=== PATIENT | male | born 1965 | race Caucasian/White ===

== ENCOUNTER 2023-12-05 12:12 | Emergency (ER) | payer MEDICAID, SELFPAY ==
--- NOTE | ~2023-12-05 | CT_ITS ---
EXAMINATION: CT HEAD WITHOUT CONTRAST CLINICAL INFORMATION: Double vision, evaluate for nerve palsy COMPARISON: None available. TECHNIQUE: Contiguous axial imaging was performed from the skull base to vertex without intravenous administration of contrast. This CT examination was performed using dose optimization techniques as appropriate, variously including the following: *Automated exposure control *Adjustment of mA and/or kV according to patient size (this includes techniques or standardized protocols for targeted exams where dose is matched to indication/reason for exam; i.e. extremities or head) *Use of iterative reconstruction technique DLP: 766 mGy-cm FINDINGS: RESULTS: There is no evidence of acute intracranial hemorrhage, acute large vessel infarct, midline shift or mass effect. The ambriz-white differentiation is preserved. The ventricles and sulci are within normal limits in size and configuration. There is no evidence of hydrocephalus. There are no extraaxial collections. Osseous structures are intact. Paranasal sinuses and mastoid air cells are well aerated. CT/CT head/brain wo IV con IMPRESSION: Unremarkable non-contrast CT of the brain. Electronically signed by: Luli Grant MD 12/05/2023 02:19 PM EDT
--- NOTE | ~2023-12-05 | CT_ITS ---
EXAMINATION: CT ANGIOGRAPHY CERVICAL AND CEREBRAL CLINICAL INFORMATION: Left 6th nerve palsy, questionable stroke COMPARISON: CT head December 05, 2023 TECHNIQUE: Serial contiguous axial images of the upper thoracic, cervical and intracranial arterial anatomy were obtained 10 seconds following bolus infusion of 70 mL of Omnipaque. Prior to this, noncontrast imaging of the head was performed. This CT examination was performed using dose optimization techniques as appropriate, variously including the following: *Automated exposure control *Adjustment of mA and/or kV according to patient size (this includes techniques or standardized protocols for targeted exams where dose is matched to indication/reason for exam; i.e. extremities or head) *Use of iterative reconstruction technique DLP: 2425 mGy-cm FINDINGS: The aortic arch and the origins of the right brachiocephalic, left common carotid, and left subclavian arteries are normal in size and appearance. Cervical CTA: The common, external and internal carotid arteries are normal in course and caliber. There is no significant stenosis at the origin of the internal carotid arteries. The vertebral arteries are codominant. The extracranial vertebral arteries are normal in a course and caliber. There is no evidence of aneurysm, dissection, or significant stenosis. There is no extravasation of contrast to suggest vascular injury. Cerebral CTA: The intracranial segments of the internal carotid arteries are normal bilaterally. The anterior and middle cerebral vasculature is normal. The anterior communicating and both posterior communicating arteries are seen and are unremarkable in appearance. The vertebrobasilar junction is normal. The basilar artery and its branches are normal. The major venous sinuses are unremarkable. There is no evidence of aneurysm, dissection, arteriovenous malformation, or significant stenosis. There is no extravasation of contrast to suggest vascular injury. CT/CT angio head neck IMPRESSION: No occlusion or stenosis of the head and neck vasculature. Electronically signed by: Sea Lauren DO 12/05/2023 08:47 PM EDT
[2023-12-05 12:27] VITALS: BP 155/95; PULSE 96; RESP 16; TEMP 36.4; O2SAT 97; BMI 31.0
--- NOTE | 2023-12-05 12:27 | ED.GENADULT ---
HPI - General Adult General Chief complaint: Eye Problems Stated complaint: double vision Time Seen by Provider: 12/05/23 16:14 History of Present Illness ED Provider: Mary Ann SHEPHERD narrative: The patient is a 58-year-old male with a history of hypertension and diabetes. He takes insulin. He normally lives in [place], [place]. He has a girlfriend who lives in this area. Starting 3 days ago on he feels that he has been experiencing double vision. He says that if he looks to the right the double vision resolves and he can see normally. However he looks straight ahead his vision becomes double vision and if he tries to look to the left the double vision becomes more pronounced. He has had some mild associated head discomfort near the left eye associated with this. He says that the vision out of each eye is reasonably good if he covers the other eye. He has never had a problem like this before. No fever, sweats, chills. No injury. No severe headache. Related Data Allergies Allergy/AdvReac Type Severity Reaction Status Date / Time No Known Allergies Allergy Verified 12/05/23 12:28 Review of Systems Review of Systems: Yes all other systems are reviewed and are negative [facility] Social History Social History Advance Directives: No Advance Directives Information Provided: No Do you have a plan to hurt others: No Plan Physical Exam ED Vital Signs: Vital Signs - 24 hr 12/05/23 12:27 12/05/23 14:36 12/05/23 18:27 Temperature 97.6 F 98.7 F Pulse Rate 96 73 81 Respiratory Rate 16 16 16 Blood Pressure 155/95 H 145/78 H 154/90 H Pulse Oximetry 97 99 97 Oxygen Delivery Method Room Air Room Air Room Air 12/05/23 20:15 Temperature 98.3 F Pulse Rate 78 Respiratory Rate 16 Blood Pressure 160/90 H Pulse Oximetry 98 Oxygen Delivery Method Room Air BMI result Body Mass Index 31.0 Const Other: The patient is awake, alert, pleasant, cooperative. He does not seem in obvious distress. HENMT Other: Face is symmetrical. Mucous membranes moist. Tongue is midline. Eyes Other: The patient is eye movements are significant for an absence of lateral movement of the left eye. Other movements of the left eye seem intact but patient can not fully laterally deviate the left eye. Pupils are round equal and reactive to light. Conjunctivae are clear. Visual pulliam are intact to confrontation in both eyes. Extraocular movements of the right eye are completely normal. Neck Other: No bruit, neck is supple Resp Effort & Inspection: normal respiratory effort Auscultation: clear to auscultation bilaterally Cardio Rate: regular rate Rhythm: regular rhythm Heart sounds: S1 normal heart sound present and S2 normal heart sound present GI Other: Abdomen is soft and nontender Skin Other: Skin is dry and unremarkable Neuro Other: The patient is awake and alert with a normal mental status. Orientation is normal. Pupils are round equal. Examination of the extraocular muscles reveals that the left eye does not deviate laterally. Extraocular movements of the right are are normal and intact. The patient reports normal vision when looking to the right of the midline but when his gaze face is forward or he makes any attempt to look to the left he has double vision. Visual pulliam are intact to confrontation in each eye tested separately. Speech is clear and normal. The patient has intact strength and sensation in all 4 extremities. Finger-nose is normal. Gait is normal. Extrem Other: No peripheral edema Course Course Course Narrative: This is a Rapid Medical Examination (RME) performed by Meghana Haile PA-C in triage. Full HPI, ROS, assessment and treatment plan per primary provider in the Main ED. 58 yo male here for eval of double vision with looking straight and to the left which began on waking 2 days ago. no injury/ trauma. + left eye tracking slower than right. attempted to examine visual pulliam however patient not following my verbal instructions. PERRLA. exam nonfocal. ambulating with steady gait. Plan: labs, imaging Medications Administered Discontinued Medications Generic Name Dose Route Start Last Admin Trade Name Sarah PRN Reason Stop Dose Admin Iohexol 100 ml 12/05/23 18:33 12/05/23 18:33 Iohexol 350 Mg/Ml 100 Ml Infus..Btl IV 12/05/23 18:34 70 ml ONCE ONE Administration Medical Decision Making Medical Decision Making MDM Narrative: The patient is a 58-year-old male who is a type 2 diabetic who uses insulin. He also has a history of hypertension. He normally lives in [place], [place]. He is visiting this area because he is visiting his girlfriend. The patient says that 3 days ago on he developed a sense of double vision that was better when he looks to the right. His symptoms have been persistent and so he came to the emergency room for evaluation today. On physical exam he seems to have a 6th nerve palsy of the left eye. He can not laterally deviate the left eye. When he looks to the right he has conjugate vision that is normal. However when he looks forward or to the left he has double vision. Sixth nerve palsy of this kind is often a complication of diabetes. There is no suggestion of any infectious process. He is unremarkable inflammatory markers. He has no other neurological deficits to suggest that a stroke would be likely. A noncontrast head CT is negative. A CT angiogram of the head and neck does not show any significant vascular disease. My suspicion for stroke in this case would be quite low. My overall sense is that this is most likely a complication of his diabetes. He says that he has very afraid of needles and he seems to suggest that his diabetes management is problematic. His hemoglobin A1c today is not that bad at 9.3. I think the patient may be discharged to follow up with his regular doctor to discuss this further. He will be given an eye patch to his left eye to prevent double vision. He should continue taking all of his regular medications. He should contact his doctor in [place] on Thursday for a prompt follow up appointment and additional management. Lab Data 12/05/23 12:43 12/05/23 12:43 Labs: Lab Results 12/05/23 12/05/23 Range/Units 12:43 12:49 WBC 7.6 (4.8-10.8) X10*3/uL RBC 5.16 (4.60-5.80) X10*6/uL Hgb 15.3 (14.0-18.0) g/dl Hct 45.5 (42.0-52.0) % MCV 88.2 (80.0-98.0) fL MCH 29.7 (27.0-33.0) pg MCHC 33.6 (31.0-36.0) g/dl RDW 12.1 (11.0-16.0) % Plt Count 253 (160-400) X10*3/uL MPV 10.2 (9.4-12.4) fL Immature Gran % (Auto) 0.1 (0.0-0.4) % Neut % (Auto) 68.1 (45-73) % Lymph % (Auto) 23.2 (20-40) % [place] % (Auto) 6.3 (2-11) % Eos % (Auto) 1.8 (0-4) % Baso % (Auto) 0.5 (0-2) % Lymph # (Auto) 1.8 (1.2-4.9) X10*3/uL [place] # (Auto) 0.5 (0.1-1.2) X10*3/uL Eos # (Auto) 0.1 (0.0-0.4) X10*3/uL Baso # (Auto) 0.0 (0.0-0.2) X10*3/uL Abs Immat Gran (auto) 0.01 (0.00-0.03) X10*3/uL Absolute Neuts (auto) 5.1 (2.0-8.3) x10*3/uL Absolute Nucleated RBC 0.000 (0.0-0.012) X10*3/uL Nucleated RBC % (auto) 0.0 (0.0-0.2) /100WBC ESR 6 (0-15) MM/HR PT 11.6 (10.9-12.4) SEC INR 1.0 (0.9-1.1) Sodium 138 (135-145) mmol/L Potassium 4.0 (3.3-5.1) mmol/L Chloride 103 (96-108) mmol/L Carbon Dioxide 26 (22-29) mmol/L Anion Gap 13 (12-20) BUN 11 (9-16) mg/dL Creatinine 1.04 (0.5-1.4) mg/dL Estim Creat Clear Calc 88.1 Estimated GFR > 60 POC Glucose 288 H (60-115) mg/dL Random Glucose 313 H (60-115) mg/dL Estimat Average Glucose 220 mg/dL Hemoglobin A1c % 9.3 H (<6.0) % Calcium 9.9 (8.4-10.2) mg/dL Magnesium 1.8 (1.6-2.6) mg/dL Total Bilirubin 0.5 (0.0-1.0) mg/dL AST 26 (5-37) U/L ALT 38 (0-40) U/L Alkaline Phosphatase 77 (39-117) U/L C-Reactive Protein 0.25 (< or = 0.50) mg/dL Total Protein 7.8 (6.5-8.0) g/dL Albumin 4.4 (3.5-5.0) g/dL Discharge Plan Discharge Clinical Impression: Sixth nerve palsy of left eye Patient Disposition: Home, Self-Care Additional Instructions: I believe that your double vision is occurring because your left eye is not moving properly. Your left eye is not moving to the left side when your eyes want to move to the left side. This means that your eyes are not properly aligned when you were looking straight ahead or to the left and when that happens you see double. This problem often occurs to people with diabetes. The testing we did today does not show any signs of a stroke or any vascular problems. I think this is primarily a problem related to your diabetes control. Please wear the eye patch so that you will not experience double vision. Please make sure that you take all of your regular medications including your insulin. Most importantly please call your regular doctor on Thursday to make a prompt follow up appointment to discuss this problem further. If at any point you are significantly worse please return to the emergency room here or go to the nearest emergency room. Print Language: Kittitian
[2023-12-05 12:47] LABS: MANUAL DIFF FLAG NO
[2023-12-05 12:48] LABS: Basophils Percent Auto 0.5 % (0-2); Eosinophils Absolute Auto 0.1 X10*3/uL (0.0-0.4); Eosinophils Percent Auto 1.8 % (0-4); Hematocrit 45.5 % (42.0-52.0); Hemoglobin 15.3 g/dl (14.0-18.0); Imm Gran Abs Auto 0.01 X10*3/uL (0.00-0.03); Imm Gran Pct Auto 0.1 % (0.0-0.4); Lymphocytes Absolute Auto 1.8 X10*3/uL (1.2-4.9); Lymphocytes Percent Auto 23.2 % (20-40); Mean Corpuscular HGB Conc 33.6 g/dl (31.0-36.0); Mean Corpuscular Hemoglobin 29.7 pg (27.0-33.0); Mean Corpuscular Volume 88.2 fL (80.0-98.0); Mean Platelet Volume 10.2 fL (9.4-12.4); Monocytes Absolute Auto 0.5 X10*3/uL (0.1-1.2); Monocytes Percent Auto 6.3 % (2-11); Neutrophils Absolute Auto 5.1 x10*3/uL (2.0-8.3); Neutrophils Percent Auto 68.1 % (45-73); Platelet Count 253 X10*3/uL (160-400); Red Blood Count 5.16 X10*6/uL (4.60-5.80); Red Cell Distribution Width 12.1 % (11.0-16.0); White Blood Count 7.6 X10*3/uL (4.8-10.8)
[2023-12-05 12:53] LABS: Glucose, Whole Blood 288 mg/dL (60-115)
[2023-12-05 12:55] LABS: Prothrombin Time 11.6 SEC (10.9-12.4)
[2023-12-05 13:02] LABS: Alanine Aminotransferase 38 U/L (0-40); Albumin Level 4.4 g/dL (3.5-5.0); Alkaline Phosphatase 77 U/L (39-117); Anion Gap 13 (12-20); Aspartate Amino Transferase 26 U/L (5-37); Bilirubin Total 0.5 mg/dL (0.0-1.0); Blood Urea Nitrogen 11 mg/dL (9-16); Calcium 9.9 mg/dL (8.4-10.2); Carbon Dioxide 26 mmol/L (22-29); Chloride 103 mmol/L (96-108); Creatinine Clr Calc Pharmacy 88.1; Estimated Glomerular Filt Rate > 60; Glucose Random 313 mg/dL (60-115); Magnesium 1.8 mg/dL (1.6-2.6); Sodium 138 mmol/L (135-145); Total Protein 7.8 g/dL (6.5-8.0)
[2023-12-05 14:36] VITALS: BP 145/78; PULSE 73; RESP 16; TEMP 37.1; O2SAT 99
[2023-12-05 16:57] LABS: Estimated Average Glucose 220 mg/dL; Hemoglobin A1c % 9.3 % (<6.0); Total Hemoglobin (HGBA1C) 3911.8834 umol/L
[2023-12-05 17:07] LABS: C Reactive Protein 0.25 mg/dL (< or = 0.50)
[2023-12-05 17:44] LABS: Erythrocyte Sedimentation Rate 6 MM/HR (0-15)
[2023-12-05 18:27] VITALS: BP 154/90; PULSE 81; RESP 16; O2SAT 97
[2023-12-05] MEDS: iohexoL 350 MG/ML 100 ML INFUS..BTL IV (18:33)
[2023-12-05 20:15] VITALS: BP 160/90; PULSE 78; RESP 16; TEMP 36.8; O2SAT 98
--- NOTE | 2023-12-05 20:18 | PC.NURSE ---
neuro assessment performed. pt is axox4 speaking full clear sentences. no facial droop/focal deficits noted of BUE & BLE. pt has a known injury to LLE and has some pain during exam. pupils are equal and reactive of bilat eyes but L. eye does not move completely to left side when performing eye exam which is consistent with pt sx of blurry vision on this side. vitals as documented. MD aware. awaiting cta results. at bedside. call oconnor within reach.
[2023-12-05 21:15] VITALS: BP 160/90; PULSE 78; RESP 16; TEMP 36.8; O2SAT 98
== END 2023-12-05 21:15 | disposition home or self-care (01) ==
PROVIDERS: Physician Assistant Medical; Emergency Provider Emergency Medicine
DX: H49.22 Sixth [abducent] nerve palsy, left eye (principal); H53.2 Diplopia; E11.9 Type 2 diabetes mellitus without complications; Z79.4 Long term (current) use of insulin
CPT/HCPCS: 36415; 70450; 70496; 70498; 80053; 82947; 83036; 83735; 85025; 85610; 85652; 86140; 99284; Q9967